=== PATIENT | female | born 1975 | race Caucasian/White ===

== ENCOUNTER 2016-12-24 22:23 | Inpatient (IN) | payer BC ==
[~2016-12-24] VITALS: Ht 165.1 cm; Wt 94.2 kg
[~2016-12-24 22:23] MED LIST: ALBUTEROL0.09 MG/A1 IH; AMBIEN CR 12.12.5 MG PO; AMBIEN5 MG PO; BACTROBAN 22GM22 GM TP; CLARITIN; COMPAZINE 5MG TA5 MG PO; DILAUDID8 M1 PO; EFFEXOR 75M75 MG/TAB PO; LORTAB 10/500 51 TAB PO; LORTAB 5/500 501 TAB PO; METHADONE H10 MG/TAB PO; MS CONTIN 660 MG/TAB PO; MULTIPLE VITAMI1 TAB PO; MVI; NORCO 325 MG-51 TAB PO; NOVA RING; PHENERGAN 25 TA25 MG PO; PHENERGAN W/CO120 ML PO; PYRIDIUM 100MG100 MG PO; SINGULAIR; ULTRAM 50MG TAB50 MG PO; ZANAFLEX 4MG TAB4 MG PO; methodone
[2016-12-24 23:08] LABS: BASO # 0.1 (0.0-0.2); BASO % 0.4 % (0.0-2.0); EOS # 0.3 (0.0-0.7); EOS % 2.6 % (0-4.0); GRAN # 8.4 (1.4-6.5); HEMATOCRIT 41.8 % (37.0-47.0); HEMOGLOBIN 14.3 g/dl (12.5-16.0); LYMPH % 16.9 % (20.0-51.0); MEAN CELL VOLUME 88 fl (80.0-100.0); MEAN CORPUSCULAR HEMOGLOBIN 30 pg (27.0-31.0); MEAN CORPUSCULAR HGB CONC 34 g/dl (33.0-37.0); MONO # 1.1 (0.1-0.6); MONO % 8.8 % (1.7-9.3); PLATELET COUNT 416 K/mm3 (130-400); RED BLOOD COUNT 4.76 M/mm3 (4.10-5.30); REDCELL DISTRIBUTION WIDTH-CV 13.4 % (11.5-14.5); WHITE BLOOD COUNT 11.9 K/mm3 (4.8-10.8)
[2016-12-24 23:23] LABS: ADJUSTED CALCIUM 9.6 mg/dL (8.4-10.2); ALANINE AMINOTRANSFERASE 29 U/L (9-52); ALBUMIN 4.4 gm/dL (3.5-5.0); ALKALINE PHOSPHATASE 149 U/L (50-136); ANION GAP 12 mmol/L (7-16); BILIRUBIN,TOTAL 0.9 mg/dL (0.0-1.0); BLOOD UREA NITROGEN 5 mg/dL (7-17); CALCIUM 9.9 mg/dL (8.4-10.2); CARBON DIOXIDE 29 mmol/L (22-30); CHLORIDE 94 mmol/L (98-107); GLUCOSE 95 mg/dL (74-106); LIPASE 75 U/L (23-300); POTASSIUM 3.9 mmol/L (3.4-5.0); SODIUM 135 mmol/L (137-145); TOTAL PROTEIN 8.4 gm/dL (6.4-8.2)
[2016-12-24 23:33] LABS: TROPONIN-I < 0.012 ng/mL (0.000-0.034)
[2016-12-24 23:56] LABS: C-REACTIVE PROTEIN 11.2 mg/dL (0.0-0.9)
[2016-12-25] VITALS (7 sets, daily range): BP systolic 111–142; BP diastolic 65–94; PULSE 86–109; TEMP 97–98.6
[2016-12-25 00:56] LABS: PH 6 (5-8); URINE APPEARANCE Clear; URINE BACTERIA None Seen /hpf; URINE BILIRUBIN Negative (NEGATIVE); URINE BLOOD Negative (NEGATIVE); URINE COLOR Yellow; URINE GLUCOSE Negative (NEGATIVE); URINE KETONE Negative (NEGATIVE); URINE RBC 0-2 /hpf; URINE UROBILINOGEN Negative (NEGATIVE); URINE WBC 0-2 /hpf
[2016-12-25] MEDS ORDERED: [UNRECOGNIZED DRUG - OTHER] PO (01:59)
[2016-12-25] MEDS ORDERED: FROVA PO (12:31)
[2016-12-26] VITALS (7 sets, daily range): BP systolic 121–155; BP diastolic 58–100; PULSE 62–96; TEMP 97.8–99.3
[2016-12-26 08:57] LABS: BASO % 0.6 % (0.0-2.0); EOS # 0.4 (0.0-0.7); EOS % 5.5 % (0-4.0); GRAN # 4.7 (1.4-6.5); GRAN % 64.7 % (42.2-75.2); HEMATOCRIT 37.1 % (37.0-47.0); HEMOGLOBIN 12.4 g/dl (12.5-16.0); LYMPH # 1.2 (1.2-3.4); LYMPH % 16.9 % (20.0-51.0); MEAN CELL VOLUME 90 fl (80.0-100.0); MEAN CORPUSCULAR HEMOGLOBIN 30 pg (27.0-31.0); MEAN CORPUSCULAR HGB CONC 33 g/dl (33.0-37.0); MONO # 0.9 (0.1-0.6); PLATELET COUNT 385 K/mm3 (130-400); RED BLOOD COUNT 4.12 M/mm3 (4.10-5.30); REDCELL DISTRIBUTION WIDTH-CV 13.6 % (11.5-14.5); WHITE BLOOD COUNT 7.3 K/mm3 (4.8-10.8)
[2016-12-26 09:09] LABS: ALBUMIN 3.7 gm/dL (3.5-5.0); BILIRUBIN,TOTAL 0.4 mg/dL (0.0-1.0); CALCIUM 8.8 mg/dL (8.4-10.2); CREATININE, serum 0.58 mg/dL (0.52-1.25); POTASSIUM 4.2 mmol/L (3.4-5.0); TOTAL PROTEIN 6.9 gm/dL (6.4-8.2)
[2016-12-27] VITALS (9 sets, daily range): BP systolic 117–138; BP diastolic 81–92; PULSE 73–105; TEMP 98–98.8
== END 2016-12-27 20:00 | disposition home or self-care (01) | DRG 417 ==
LOC: COL.ER 22:23 → PEDS 12-25 00:48
PROVIDERS: Emergency Medicine; Internal Medicine; Nurse Practitioner Family; Surgery
PROC: BF101ZZ Fluoroscopy of Bile Ducts using Low Osmolar Contrast (ICD-10-PCS; 2016-12-27)
PROC: 0FT44ZZ Resection of Gallbladder, Percutaneous Endoscopic Approach (ICD-10-PCS; principal; 2016-12-27 09:00)
DX: K80.10 Calculus of gallbladder with chronic cholecystitis without obstruction (principal); K85.10 Biliary acute pancreatitis without necrosis or infection; F17.210 Nicotine dependence, cigarettes, uncomplicated
CPT/HCPCS: 99223-AI; 99232-AI; 99239; A9537; A9585; G0378; J0360; J0744; J1100; J1170; J1885; J2060; J2270; J2405; J2550; J2704; J2710; J3010; J7030; Q9967

== ENCOUNTER 2017-11-01 02:15 | Emergency (ER) | payer BC ==
[~2017-11-01] VITALS: Ht 165.1 cm; Wt 95.5 kg
[~2017-11-01 02:15] MED LIST changes: +FROVA PO; +[UNRECOGNIZED DRUG - OTHER] PO
[2017-11-01 02:18] VITALS: BP 165/91; TEMP 98.5
[2017-11-01 02:53] LABS: BASO % 0.3 % (0.0-2.0); EOS # 0.6 (0.0-0.7); EOS % 5.9 % (0-4.0); GRAN # 7.5 (1.4-6.5); GRAN % 69.5 % (42.2-75.2); HEMATOCRIT 40.4 % (37.0-47.0); HEMOGLOBIN 13.7 g/dl (12.5-16.0); LYMPH % 18.9 % (20.0-51.0); MEAN CELL VOLUME 88 fl (80.0-100.0); MEAN CORPUSCULAR HEMOGLOBIN 30 pg (27.0-31.0); MEAN CORPUSCULAR HGB CONC 34 g/dl (33.0-37.0); MEAN PLATELET VOLUME 9.5 fl (7.4-10.4); MONO # 0.5 (0.1-0.6); MONO % 4.9 % (1.7-9.3); PLATELET COUNT 434 K/mm3 (130-400); RED BLOOD COUNT 4.59 M/mm3 (4.10-5.30); REDCELL DISTRIBUTION WIDTH-CV 14.3 % (11.5-14.5)
[2017-11-01 03:06] LABS: ALBUMIN 4.2 gm/dL (3.5-5.0); BILIRUBIN,TOTAL 0.4 mg/dL (0.0-1.0); CALCIUM 9.1 mg/dL (8.4-10.2); CREATININE, serum 0.89 mg/dL (0.52-1.25); POTASSIUM 3.9 mmol/L (3.4-5.0); TOTAL PROTEIN 7.6 gm/dL (6.4-8.2)
[2017-11-01] MEDS ORDERED: TRIAM OI 0.1 80 TOP (03:58)
[2017-11-01] MEDS ORDERED: NORCO 325 MG-51 TAB PO (03:58)
[2017-11-01 04:28] VITALS: PULSE 106
== END 2017-11-01 04:25 | disposition home or self-care (01) ==
LOC: COL.ER 02:15
PROVIDERS: Emergency Medicine
DX: L30.9 Dermatitis, unspecified (principal); G43.909 Migraine, unspecified, not intractable, without status migrainosus; F17.210 Nicotine dependence, cigarettes, uncomplicated
CPT/HCPCS: J1200; J2930; J3010; J7030

== ENCOUNTER 2018-03-19 07:46 | Emergency (ER) | payer BC ==
[~2018-03-19] VITALS: Ht 165.1 cm; Wt 84.5 kg
[~2018-03-19 07:46] MED LIST changes: +ATIVAN 0.50.5 MG/TAB PO; +TRIAM OI 0.1 80 TOP
[2018-03-19 07:50] VITALS: BP 155/96; TEMP 97.6
[2018-03-19] MEDS ORDERED: PHENERGAN 25 TA25 MG PO (08:07)
[2018-03-19] MEDS ORDERED: DILAUDID8 M1 PO (08:07)
[2018-03-19] MEDS ORDERED: CATAPRES0.2 MG PO (08:08)
[2018-03-19] MEDS ORDERED: AMOXICILLIN 8751 TAB PO (08:10)
[2018-03-19] MEDS ORDERED: NORCO 325 MG-51 TAB PO (08:10)
[2018-03-19 08:29] VITALS: PULSE 91
== END 2018-03-19 08:30 | disposition home or self-care (01) ==
LOC: COL.ER 07:46
DX: K02.9 Dental caries, unspecified (principal); J30.9 Allergic rhinitis, unspecified; G43.909 Migraine, unspecified, not intractable, without status migrainosus; F17.210 Nicotine dependence, cigarettes, uncomplicated

== ENCOUNTER 2019-11-29 12:20 | Emergency (ER) | payer BC ==
[~2019-11-29] VITALS: Ht 165.1 cm; Wt 72.7 kg
[~2019-11-29 12:20] MED LIST changes: +AMOXICILLIN 8751 TAB PO; +CATAPRES0.2 MG PO
[2019-11-29 12:52] VITALS: BP 145/88; TEMP 97.2
[2019-11-29 15:57] VITALS: PULSE 76
== END 2019-11-29 15:55 | disposition home or self-care (01) ==
LOC: COL.ER 12:20
DX: G43.909 Migraine, unspecified, not intractable, without status migrainosus (principal); F17.210 Nicotine dependence, cigarettes, uncomplicated
CPT/HCPCS: J0595; J2550

== ENCOUNTER 2021-03-05 06:47 | Emergency (ER) | payer BC ==
[~2021-03-05] VITALS: Ht 165.1 cm; Wt 81.8 kg
[2021-03-05 07:08] VITALS: TEMP 97.7
[2021-03-05] MEDS ORDERED: TOPROL XL 50MG50 MG PO (07:31)
[2021-03-05] MEDS ORDERED: FLEXERIL 1010 MG/TAB PO (07:31)
[2021-03-05] MEDS ORDERED: FROVA PO (07:32)
[2021-03-05 08:16] LABS: BASO % 0.4 % (0.0-2.0); EOS # 0.4 (0.0-0.7); EOS % 3.7 % (0-4.0); GRAN % 73.3 % (42.2-75.2); HEMATOCRIT 35.2 % (37.0-47.0); LYMPH # 1.3 (1.2-3.4); LYMPH % 13.7 % (20.0-51.0); MEAN CELL VOLUME 87 fl (80.0-100.0); MEAN CORPUSCULAR HEMOGLOBIN 30 pg (27.0-31.0); MEAN CORPUSCULAR HGB CONC 34 g/dl (33.0-37.0); MEAN PLATELET VOLUME 9.5 fl (7.4-10.4); MONO # 0.8 (0.1-0.6); MONO % 8.6 % (1.7-9.3); PLATELET COUNT 371 K/mm3 (130-400); RED BLOOD COUNT 4.03 M/mm3 (4.10-5.30); REDCELL DISTRIBUTION WIDTH-CV 13.9 % (11.5-14.5)
[2021-03-05 08:24] LABS: INR 1.2 (0.8-3.0); PROTHROMBIN TIME 12.8 SECONDS (9.7-12.8)
[2021-03-05 08:28] LABS: ALBUMIN 3.6 gm/dL (3.5-5.0); BILIRUBIN,TOTAL 0.1 mg/dL (0.0-1.0); C-REACTIVE PROTEIN 1.6 mg/dL (0.0-0.9); CALCIUM 8.2 mg/dL (8.4-10.2); CREATININE, serum 0.6 (0.52-1.25); POTASSIUM 3.7 mmol/L (3.4-5.0); TOTAL PROTEIN 6.8 gm/dL (6.4-8.2)
[2021-03-05 10:15] LABS: COLLECTION METHOD CLEAN CATCH
[2021-03-05 10:20] LABS: MUCOUS Present /lpf; PH 6 (5-8); SQUAMOUS EPITHELIAL 0-2 /hpf; URINE APPEARANCE Hazy; URINE BACTERIA Rare /hpf; URINE BILIRUBIN Negative (NEGATIVE); URINE BLOOD Negative (NEGATIVE); URINE COLOR Yellow; URINE GLUCOSE Negative (NEGATIVE); URINE KETONE Negative (NEGATIVE); URINE LEUKOCYTE ESTERASE Negative (NEGATIVE); URINE NITRATE Negative (NEGATIVE); URINE PROTEIN(semi-quant) Negative (NEGATIVE); URINE RBC 0-2 /hpf; URINE UROBILINOGEN Negative (NEGATIVE)
[2021-03-05 10:54] VITALS: BP 127/88; PULSE 64
== END 2021-03-05 11:00 | disposition home or self-care (01) ==
LOC: COL.ER 06:47
PROVIDERS: Emergency Medicine
DX: R10.32 Left lower quadrant pain (principal); G89.29 Other chronic pain; F17.210 Nicotine dependence, cigarettes, uncomplicated; Z90.49 Acquired absence of other specified parts of digestive tract; Z87.448 Personal history of other diseases of urinary system; Z32.02 Encounter for pregnancy test, result negative; Z88.1 Allergy status to other antibiotic agents; Z88.2 Allergy status to sulfonamides; Z88.6 Allergy status to analgesic agent
CPT/HCPCS: J7030

== ENCOUNTER → 2021-04-04 | Outpatient (CLI) | payer BC ==
[~2021-04-04] MED LIST changes: +FLEXERIL 1010 MG/TAB PO; +TOPROL XL 50MG50 MG PO
== END ==
LOC: COL.RAD 14:38
DX: N26.1 Atrophy of kidney (terminal) (principal); I88.0 Nonspecific mesenteric lymphadenitis; Z90.49 Acquired absence of other specified parts of digestive tract

== ENCOUNTER 2021-04-05 13:55 | Emergency (ER) | payer BC ==
[~2021-04-05] VITALS: Ht 165.1 cm; Wt 79.5 kg
[2021-04-05 14:03] VITALS: TEMP 97.7
[2021-04-05 16:27] VITALS: BP 148/99; PULSE 74
== END 2021-04-05 16:26 | disposition home or self-care (01) ==
LOC: COL.ER 13:55
DX: R51.9 Headache, unspecified (principal); R11.0 Nausea; J34.89 Other specified disorders of nose and nasal sinuses; F17.210 Nicotine dependence, cigarettes, uncomplicated
CPT/HCPCS: J1200; J2405

== ENCOUNTER 2021-10-14 19:20 | Emergency (ER) | payer BC ==
[~2021-10-14] VITALS: Ht 165.1 cm; Wt 72.7 kg
[2021-10-14 19:30] VITALS: TEMP 98
[2021-10-14 22:06] LABS: BASO # 0.1 K/mm3 (0.0-0.2); BASO % 0.5 % (0.0-2.0); EOS # 0.3 K/mm3 (0.0-0.7); EOS % 3.1 % (0.0-4.0); GRAN % 57.9 % (42.2-75.2); HEMOGLOBIN 11.4 g/dl (12.5-16.0); LYMPH % 28.8 % (20.0-51.0); MEAN CELL VOLUME 90 fl (80.0-100.0); MEAN CORPUSCULAR HEMOGLOBIN 31 pg (27-31); MEAN CORPUSCULAR HGB CONC 34 g/dl (33.0-37.0); MEAN PLATELET VOLUME 9.3 fl (7.4-10.4); MONO % 9.3 % (1.7-9.3); PLATELET COUNT 410 K/mm3 (130-400); RED BLOOD COUNT 3.74 M/mm3 (4.10-5.30); REDCELL DISTRIBUTION WIDTH-CV 15.9 % (11.5-14.5)
[2021-10-14 22:14] LABS: HEMATOCRIT 33.8 % (37.0-47.0)
[2021-10-14 22:25] LABS: ALBUMIN 3.1 gm/dL (3.5-5.0); BILIRUBIN,TOTAL 0.2 mg/dL (0.2-1.2); C-REACTIVE PROTEIN 0.29 mg/dL (0.00-0.50); CALCIUM 8.2 mg/dL (8.4-10.2); CREATININE, serum 0.78 mg/dL (0.57-1.11); POTASSIUM 4.4 mmol/L (3.5-4.5); TOTAL PROTEIN 5.8 gm/dL (6.2-8.1)
[2021-10-14 23:17] LABS: COLLECTION METHOD CLEAN CATCH
[2021-10-14 23:35] LABS: MUCOUS Present (NOT PRESENT); PH 6 (5-8); SQUAMOUS EPITHELIAL 0-2 /hpf (0-10); URINE APPEARANCE Clear (CLEAR/HAZY); URINE BACTERIA Moderate (NONE SEEN); URINE BILIRUBIN Negative (NEGATIVE); URINE BLOOD Negative (NEGATIVE); URINE COLOR Straw (YELLOW); URINE GLUCOSE Negative (NEGATIVE); URINE KETONE Negative (NEGATIVE); URINE LEUKOCYTE ESTERASE Negative (NEGATIVE); URINE NITRATE Negative (NEGATIVE); URINE PROTEIN(semi-quant) Negative (NEGATIVE); URINE RBC 0-2 /hpf (0-2); URINE UROBILINOGEN Negative (NEGATIVE)
[2021-10-15 01:50] VITALS: BP 146/78; PULSE 74
== END 2021-10-15 01:50 | disposition home or self-care (01) ==
LOC: COL.ER 19:20
PROVIDERS: Physician Assistant
DX: N83.202 Unspecified ovarian cyst, left side (principal); R19.7 Diarrhea, unspecified; G43.909 Migraine, unspecified, not intractable, without status migrainosus; Z88.6 Allergy status to analgesic agent; Z79.899 Other long term (current) drug therapy
CPT/HCPCS: J2270; J2405; J7030; Q9967

== ENCOUNTER 2021-10-24 08:42 | Emergency (ER) | payer BC ==
[~2021-10-24] VITALS: Ht 165.1 cm; Wt 66.8 kg
[2021-10-24 09:28] LABS: BASO % 0.6 % (0.0-2.0); EOS # 0.2 K/mm3 (0.0-0.7); EOS % 2.8 % (0.0-4.0); GRAN # 4.4 K/mm3 (1.4-6.5); HEMOGLOBIN 12.5 g/dl (12.5-16.0); LYMPH # 1.6 K/mm3 (1.2-3.4); LYMPH % 23.1 % (20.0-51.0); MEAN CELL VOLUME 91 fl (80.0-100.0); MEAN CORPUSCULAR HEMOGLOBIN 31 pg (27-31); MEAN CORPUSCULAR HGB CONC 34 g/dl (33.0-37.0); MONO # 0.6 K/mm3 (0.1-0.6); MONO % 8.4 % (1.7-9.3); PLATELET COUNT 511 K/mm3 (130-400); RED BLOOD COUNT 4.02 M/mm3 (4.10-5.30); REDCELL DISTRIBUTION WIDTH-CV 15.9 % (11.5-14.5)
[2021-10-24 09:35] LABS: HEMATOCRIT 36.6 % (37.0-47.0)
[2021-10-24 09:49] LABS: ALBUMIN 3.7 gm/dL (3.5-5.0); BILIRUBIN,TOTAL 0.2 mg/dL (0.2-1.2); C-REACTIVE PROTEIN 0.14 mg/dL (0.00-0.50); CALCIUM 8.4 mg/dL (8.4-10.2); CREATININE, serum 0.77 mg/dL (0.57-1.11); POTASSIUM 3.4 mmol/L (3.5-4.5)
[2021-10-24 11:50] LABS: COLLECTION METHOD CLEAN CATCH
[2021-10-24 11:56] LABS: URINE APPEARANCE Clear (CLEAR/HAZY); URINE COLOR Yellow (YELLOW)
[2021-10-24 11:57] LABS: PH 5 (5-8); URINE BILIRUBIN Negative (NEGATIVE); URINE BLOOD Negative (NEGATIVE); URINE GLUCOSE Negative (NEGATIVE); URINE KETONE Negative (NEGATIVE); URINE LEUKOCYTE ESTERASE Negative (NEGATIVE); URINE NITRATE Negative (NEGATIVE); URINE PROTEIN(semi-quant) Negative (NEGATIVE); URINE UROBILINOGEN Negative (NEGATIVE)
[2021-10-24 11:59] LABS: MUCOUS Present (NOT PRESENT); SQUAMOUS EPITHELIAL 0-2 /hpf (0-10); URINE BACTERIA Rare /hpf (NONE SEEN); URINE RBC 0-2 /hpf (0-2)
[2021-10-24] MEDS ORDERED: NORCO 325 MG-51 TAB PO (13:01)
[2021-10-24] MEDS ORDERED: ZOFRAN ODT4 MG PO (13:01)
[2021-10-24 13:14] VITALS: BP 149/110; PULSE 91; TEMP 98.9
== END 2021-10-24 13:40 | disposition home or self-care (01) ==
LOC: COL.ER 08:42
PROVIDERS: Family Medicine
DX: R10.32 Left lower quadrant pain (principal); R11.0 Nausea; G43.909 Migraine, unspecified, not intractable, without status migrainosus; F17.210 Nicotine dependence, cigarettes, uncomplicated; Z79.899 Other long term (current) drug therapy
CPT/HCPCS: J2270; J2405; J7120

== ENCOUNTER 2021-10-26 17:56 | Emergency (ER) | payer BC ==
[~2021-10-26] VITALS: Ht 165.1 cm; Wt 64.5 kg
[~2021-10-26 17:56] MED LIST changes: +ZOFRAN ODT4 MG PO
[2021-10-26 18:06] VITALS: TEMP 99.7
[2021-10-26 18:35] LABS: BASO # 0.1 K/mm3 (0.0-0.2); BASO % 1.1 % (0.0-2.0); EOS # 0.3 K/mm3 (0.0-0.7); EOS % 5.5 % (0.0-4.0); GRAN % 52.3 % (42.2-75.2); HEMOGLOBIN 12.7 g/dl (12.5-16.0); LYMPH # 1.8 K/mm3 (1.2-3.4); LYMPH % 32.4 % (20.0-51.0); MEAN CELL VOLUME 91 fl (80.0-100.0); MEAN CORPUSCULAR HEMOGLOBIN 31 pg (27-31); MEAN CORPUSCULAR HGB CONC 34 g/dl (33.0-37.0); MONO # 0.5 K/mm3 (0.1-0.6); MONO % 8.5 % (1.7-9.3); PLATELET COUNT 496 K/mm3 (130-400); RED BLOOD COUNT 4.06 M/mm3 (4.10-5.30); REDCELL DISTRIBUTION WIDTH-CV 15.8 % (11.5-14.5)
[2021-10-26 18:51] LABS: ALBUMIN 4.2 gm/dL (3.5-5.0); BILIRUBIN,TOTAL 0.3 mg/dL (0.2-1.2); C-REACTIVE PROTEIN 0.39 mg/dL (0.00-0.50); CALCIUM 9.6 mg/dL (8.4-10.2); CREATININE, serum 0.83 mg/dL (0.57-1.11); POTASSIUM 3.7 mmol/L (3.5-4.5); TOTAL PROTEIN 7.8 gm/dL (6.2-8.1)
[2021-10-26 19:54] LABS: COLLECTION METHOD CLEAN CATCH
[2021-10-26 19:59] LABS: PH 5 (5-8); SQUAMOUS EPITHELIAL 0-2 /hpf (0-10); URINE APPEARANCE Clear (CLEAR/HAZY); URINE BACTERIA Rare /hpf (NONE SEEN); URINE BILIRUBIN Negative (NEGATIVE); URINE BLOOD Negative (NEGATIVE); URINE COLOR Straw (YELLOW); URINE GLUCOSE Negative (NEGATIVE); URINE KETONE Negative (NEGATIVE); URINE LEUKOCYTE ESTERASE Negative (NEGATIVE); URINE NITRATE Negative (NEGATIVE); URINE PROTEIN(semi-quant) Negative (NEGATIVE); URINE RBC None Seen /hpf (0-2); URINE UROBILINOGEN Negative (NEGATIVE)
[2021-10-26 20:16] LABS: TRICYCLIC ANTIDEPRESS URINE NEGATIVE
[2021-10-26] MEDS ORDERED: PROTONIX 40MG T40 MG PO (20:27)
[2021-10-26 20:37] VITALS: BP 164/89; PULSE 76
== END 2021-10-26 20:37 | disposition home or self-care (01) ==
LOC: COL.ER 17:56
PROVIDERS: Physician Assistant
DX: R10.12 Left upper quadrant pain (principal); R11.2 Nausea with vomiting, unspecified; R19.7 Diarrhea, unspecified
CPT/HCPCS: J0780; J2270; J7030

== ENCOUNTER 2021-11-10 18:51 | Emergency (ER) | payer BC ==
[~2021-11-10 18:51] MED LIST changes: +PROTONIX 40MG T40 MG PO
[2021-11-10 19:35] VITALS: TEMP 99.2
[2021-11-10 19:56] LABS: BASO # 0.1 K/mm3 (0.0-0.2); BASO % 0.5 % (0.0-2.0); EOS # 0.2 K/mm3 (0.0-0.7); EOS % 1.6 % (0.0-4.0); GRAN # 7.6 K/mm3 (1.4-6.5); GRAN % 69.4 % (42.2-75.2); HEMATOCRIT 37.2 % (37.0-47.0); LYMPH # 1.9 K/mm3 (1.2-3.4); LYMPH % 17.5 % (20.0-51.0); MEAN CELL VOLUME 90 fl (80.0-100.0); MEAN CORPUSCULAR HEMOGLOBIN 32 pg (27-31); MEAN CORPUSCULAR HGB CONC 35 g/dl (33.0-37.0); MEAN PLATELET VOLUME 9.1 fl (7.4-10.4); MONO # 1.2 K/mm3 (0.1-0.6); MONO % 10.6 % (1.7-9.3); PLATELET COUNT 383 K/mm3 (130-400); RED BLOOD COUNT 4.12 M/mm3 (4.10-5.30); REDCELL DISTRIBUTION WIDTH-CV 15.9 % (11.5-14.5)
[2021-11-10 20:22] LABS: ALBUMIN 3.9 gm/dL (3.5-5.0); BILIRUBIN,TOTAL 0.2 mg/dL (0.2-1.2); C-REACTIVE PROTEIN 2.65 mg/dL (0.00-0.50); CALCIUM 8.5 mg/dL (8.4-10.2); CREATININE, serum 0.74 mg/dL (0.57-1.11); POTASSIUM 4.5 mmol/L (3.5-4.5)
[2021-11-10 20:46] LABS: COLLECTION METHOD CLEAN CATCH
[2021-11-10 20:55] LABS: PH 6 (5-8); URINE APPEARANCE Hazy (CLEAR/HAZY); URINE BACTERIA Moderate /hpf (NONE SEEN); URINE BILIRUBIN Negative (NEGATIVE); URINE BLOOD Negative (NEGATIVE); URINE COLOR Yellow (YELLOW); URINE GLUCOSE Negative (NEGATIVE); URINE KETONE Negative (NEGATIVE); URINE LEUKOCYTE ESTERASE Negative (NEGATIVE); URINE NITRATE Negative (NEGATIVE); URINE PROTEIN(semi-quant) Negative (NEGATIVE); URINE RBC 0-2 /hpf (0-2); URINE UROBILINOGEN Negative (NEGATIVE)
[2021-11-10 21:05] LABS: TRICYCLIC ANTIDEPRESS URINE NEGATIVE
[2021-11-10 21:42] VITALS: BP 139/107; PULSE 88
== END 2021-11-10 21:42 | disposition home or self-care (01) ==
LOC: COL.ER 18:51
PROVIDERS: Family Medicine
DX: R10.12 Left upper quadrant pain (principal); D72.829 Elevated white blood cell count, unspecified; Z90.49 Acquired absence of other specified parts of digestive tract
CPT/HCPCS: J2270; J2405; J7120

== ENCOUNTER 2022-05-01 21:17 | Emergency (ER) | payer BC ==
[2022-05-01 21:20] VITALS: TEMP 99.1
[2022-05-01 21:35] VITALS: BP 135/83
[2022-05-01 21:38] LABS: BASO # 0.1 K/mm3 (0.0-0.2); EOS # 0.3 K/mm3 (0.0-0.7); EOS % 5.5 % (0.0-4.0); GRAN # 2.7 K/mm3 (1.4-6.5); GRAN % 54.7 % (42.2-75.2); HEMOGLOBIN 12.4 g/dl (12.5-16.0); LYMPH # 1.4 K/mm3 (1.2-3.4); LYMPH % 28.1 % (20.0-51.0); MEAN CELL VOLUME 87 fl (80.0-100.0); MEAN CORPUSCULAR HEMOGLOBIN 30 pg (27-31); MEAN CORPUSCULAR HGB CONC 34 g/dl (33.0-37.0); MEAN PLATELET VOLUME 9.1 fl (7.4-10.4); MONO # 0.5 K/mm3 (0.1-0.6); MONO % 10.5 % (1.7-9.3); PLATELET COUNT 404 K/mm3 (130-400); RED BLOOD COUNT 4.21 M/mm3 (4.10-5.30); REDCELL DISTRIBUTION WIDTH-CV 15.2 % (11.5-14.5)
[2022-05-01 21:46] LABS: HEMATOCRIT 36.4 % (37.0-47.0)
[2022-05-01 21:54] LABS: ALANINE AMINOTRANSFERASE 13 U/L (0-55); ALBUMIN 3.8 gm/dL (3.5-5.0); ALKALINE PHOSPHATASE 92 U/L (40-150); ANION GAP 15 mmol/L (7-16); AST,SGOT 18 U/L (5-34); BILIRUBIN,TOTAL 0.2 mg/dL (0.2-1.2); BLOOD UREA NITROGEN 8 mg/dL (7-19); CALCIUM 9.3 mg/dL (8.4-10.2); CARBON DIOXIDE 25 mmol/L (22-29); CHLORIDE 101 mmol/L (98-107); CREATININE, serum 0.89 mg/dL (0.57-1.11); GLUCOSE 88 mg/dL (70-99); POTASSIUM 4.6 mmol/L (3.5-4.5); SODIUM 141 mmol/L (136-145); TOTAL PROTEIN 7.4 gm/dL (6.2-8.1)
[2022-05-01 21:55] LABS: ALCOHOL(ethanol),MEDICAL < 10 mg/dL (0-10)
[2022-05-01 22:20] VITALS: PULSE 100
== END 2022-05-01 22:19 ==
LOC: COL.ER 21:17
PROVIDERS: Personal Emergency Response Attendant
DX: T40.2X1A Poisoning by other opioids, accidental (unintentional), initial encounter (principal); Z88.5 Allergy status to narcotic agent
CPT/HCPCS: J2310

== ENCOUNTER 2022-05-04 08:08 | Emergency (ER) | payer BC ==
[~2022-05-04] VITALS: Ht 165.1 cm; Wt 59.1 kg
[2022-05-04 08:37] VITALS: TEMP 98.2
[2022-05-04 09:01] LABS: BASO % 0.9 % (0.0-2.0); EOS # 0.1 K/mm3 (0.0-0.7); EOS % 2.4 % (0.0-4.0); GRAN # 2.9 K/mm3 (1.4-6.5); GRAN % 64.4 % (42.2-75.2); HEMOGLOBIN 12.7 g/dl (12.5-16.0); LYMPH % 21.9 % (20.0-51.0); MEAN CELL VOLUME 85 fl (80.0-100.0); MEAN CORPUSCULAR HEMOGLOBIN 29 pg (27-31); MEAN CORPUSCULAR HGB CONC 35 g/dl (33.0-37.0); MEAN PLATELET VOLUME 9.7 fl (7.4-10.4); MONO # 0.5 K/mm3 (0.1-0.6); PLATELET COUNT 428 K/mm3 (130-400); RED BLOOD COUNT 4.33 M/mm3 (4.10-5.30)
[2022-05-04 09:12] LABS: ALBUMIN 3.8 gm/dL (3.5-5.0); BILIRUBIN,TOTAL 0.2 mg/dL (0.2-1.2); C-REACTIVE PROTEIN 0.27 mg/dL (0.00-0.50); CREATININE, serum 0.79 mg/dL (0.57-1.11); POTASSIUM 3.6 mmol/L (3.5-4.5); TOTAL PROTEIN 7.1 gm/dL (6.2-8.1)
[2022-05-04 09:34] LABS: HEMATOCRIT 36.8 % (37.0-47.0)
[2022-05-04 10:36] LABS: COLLECTION METHOD CLEAN CATCH
[2022-05-04 11:28] LABS: SQUAMOUS EPITHELIAL 0-2 /hpf (0-10); URINE BACTERIA Rare /hpf (NONE SEEN); URINE RBC 0-2 /hpf (0-2)
[2022-05-04 11:40] LABS: URINE APPEARANCE Clear (CLEAR/HAZY); URINE COLOR Yellow (YELLOW)
[2022-05-04 11:41] LABS: PH 6 (5-8); URINE BILIRUBIN Negative (NEGATIVE); URINE BLOOD Negative (NEGATIVE); URINE GLUCOSE Negative (NEGATIVE); URINE KETONE Negative (NEGATIVE); URINE LEUKOCYTE ESTERASE Negative (NEGATIVE); URINE NITRATE Negative (NEGATIVE); URINE PROTEIN(semi-quant) Negative (NEGATIVE); URINE UROBILINOGEN Negative (NEGATIVE)
[2022-05-04 11:45] VITALS: BP 159/106; PULSE 77
== END 2022-05-04 11:45 | disposition home or self-care (01) ==
LOC: COL.ER 08:08
PROVIDERS: Family Medicine
DX: R10.32 Left lower quadrant pain (principal); G89.29 Other chronic pain; F17.210 Nicotine dependence, cigarettes, uncomplicated; Z90.49 Acquired absence of other specified parts of digestive tract
CPT/HCPCS: J2270; J2405; J7120; Q9967

== ENCOUNTER 2022-05-30 23:24 | Emergency (ER) | payer BC ==
[~2022-05-30] VITALS: Ht 165.1 cm; Wt 59.1 kg
[2022-05-30 23:28] VITALS: TEMP 97.2
[2022-05-31 00:19] LABS: COLLECTION METHOD CLEAN CATCH
[2022-05-31 00:22] LABS: BASO # 0.1 K/mm3 (0.0-0.2); BASO % 0.9 % (0.0-2.0); EOS # 0.3 K/mm3 (0.0-0.7); EOS % 3.7 % (0.0-4.0); GRAN # 4.6 K/mm3 (1.4-6.5); GRAN % 57.8 % (42.2-75.2); LYMPH # 2.2 K/mm3 (1.2-3.4); LYMPH % 27.1 % (20.0-51.0); MEAN CELL VOLUME 87 fl (80.0-100.0); MEAN CORPUSCULAR HEMOGLOBIN 30 pg (27-31); MEAN CORPUSCULAR HGB CONC 35 g/dl (33.0-37.0); MEAN PLATELET VOLUME 9.5 fl (7.4-10.4); MONO # 0.8 K/mm3 (0.1-0.6); MONO % 10.2 % (1.7-9.3); PLATELET COUNT 353 K/mm3 (130-400); RED BLOOD COUNT 3.99 M/mm3 (4.10-5.30); REDCELL DISTRIBUTION WIDTH-CV 15.2 % (11.5-14.5)
[2022-05-31 00:25] LABS: HEMATOCRIT 34.7 % (37.0-47.0)
[2022-05-31 00:29] LABS: PH 6 (5-8); SQUAMOUS EPITHELIAL 0-2 /hpf (0-10); URINE APPEARANCE Clear (CLEAR/HAZY); URINE BACTERIA Many /hpf (NONE SEEN); URINE BLOOD Negative (NEGATIVE); URINE COLOR Straw (YELLOW); URINE GLUCOSE Negative (NEGATIVE); URINE KETONE Negative (NEGATIVE); URINE NITRATE Negative (NEGATIVE); URINE PROTEIN(semi-quant) Negative (NEGATIVE); URINE RBC 0-2 /hpf (0-2); URINE UROBILINOGEN Negative (NEGATIVE)
[2022-05-31 00:36] LABS: TRICYCLIC ANTIDEPRESS URINE NEGATIVE
[2022-05-31 00:40] LABS: BILIRUBIN,TOTAL 0.2 mg/dL (0.2-1.2); CREATININE, serum 1.15 mg/dL (0.57-1.11); POTASSIUM 3.4 mmol/L (3.5-4.5); TOTAL PROTEIN 7.1 gm/dL (6.2-8.1)
[2022-05-31] MEDS ORDERED: MACROBID 1100 MG/CAP PO (01:19)
[2022-05-31 01:34] VITALS: BP 137/98; PULSE 89
== END 2022-05-31 01:34 | disposition home or self-care (01) ==
LOC: COL.ER 23:24
PROVIDERS: Emergency Medicine Emergency Medical Services
DX: N39.0 Urinary tract infection, site not specified (principal); G89.29 Other chronic pain; Z88.1 Allergy status to other antibiotic agents
CPT/HCPCS: J1885; J7030

== ENCOUNTER → 2022-06-06 | Outpatient (CLI) | payer BC ==
[~2022-06-06] MED LIST changes: +MACROBID 1100 MG/CAP PO
== END ==
LOC: COL.RAD 07:26
DX: R10.9 Unspecified abdominal pain (principal)
CPT/HCPCS: A9541

== ENCOUNTER 2022-06-14 19:06 | Emergency (ER) | payer BC ==
[~2022-06-14] VITALS: Ht 165.1 cm; Wt 61.4 kg
[2022-06-14 19:17] VITALS: TEMP 98.4
[2022-06-14 19:51] LABS: COLLECTION METHOD CLEAN CATCH
[2022-06-14 19:56] LABS: BASO # 0.1 K/mm3 (0.0-0.2); BASO % 1.2 % (0.0-2.0); EOS # 0.1 K/mm3 (0.0-0.7); EOS % 1.7 % (0.0-4.0); GRAN # 2.4 K/mm3 (1.4-6.5); GRAN % 56.9 % (42.2-75.2); HEMOGLOBIN 10.7 g/dl (12.5-16.0); LYMPH # 1.3 K/mm3 (1.2-3.4); LYMPH % 30.6 % (20.0-51.0); MEAN CELL VOLUME 88 fl (80.0-100.0); MEAN CORPUSCULAR HEMOGLOBIN 31 pg (27-31); MEAN CORPUSCULAR HGB CONC 35 g/dl (33.0-37.0); MEAN PLATELET VOLUME 10.5 fl (7.4-10.4); MONO # 0.4 K/mm3 (0.1-0.6); MONO % 9.4 % (1.7-9.3); PLATELET COUNT 320 K/mm3 (130-400); RED BLOOD COUNT 3.51 M/mm3 (4.10-5.30); REDCELL DISTRIBUTION WIDTH-CV 14.9 % (11.5-14.5)
[2022-06-14 20:04] LABS: HEMATOCRIT 30.9 % (37.0-47.0)
[2022-06-14 20:09] LABS: SQUAMOUS EPITHELIAL 0-2 /hpf (0-10); URINE BACTERIA Occasional /hpf (NONE SEEN); URINE RBC 0-2 /hpf (0-2)
[2022-06-14 20:10] LABS: ALBUMIN 3.5 gm/dL (3.5-5.0); BILIRUBIN,TOTAL 0.2 mg/dL (0.2-1.2); CALCIUM 8.7 mg/dL (8.4-10.2); CREATININE, serum 0.73 mg/dL (0.57-1.11); PH 6.5 (5.0-8.5); POTASSIUM 3.7 mmol/L (3.5-4.5); TOTAL PROTEIN 6.5 gm/dL (6.2-8.1); URINE APPEARANCE Clear (CLEAR/HAZY); URINE BLOOD TRACE-INTACT (NEGATIVE); URINE COLOR Straw (YELLOW); URINE GLUCOSE Negative (NEGATIVE); URINE KETONE Negative (NEGATIVE); URINE NITRATE Negative (NEGATIVE); URINE PROTEIN(semi-quant) Negative (NEGATIVE); URINE UROBILINOGEN 0.2 E.U/dL (0.2-1.0)
[2022-06-14 21:07] VITALS: BP 164/91; PULSE 84
== END 2022-06-14 21:06 | disposition home or self-care (01) ==
LOC: COL.ER 19:06
PROVIDERS: Personal Emergency Response Attendant
DX: R10.32 Left lower quadrant pain (principal); F17.210 Nicotine dependence, cigarettes, uncomplicated
CPT/HCPCS: J2270; J2405; J7030

== ENCOUNTER 2022-10-29 15:49 | Emergency (ER) | payer BC ==
[~2022-10-29] VITALS: Ht 165.1 cm; Wt 63.6 kg
[2022-10-29 15:54] VITALS: BP 150/97; TEMP 97.6
[2022-10-29] MEDS ORDERED: MEDROL 4MG DOSPA4 MG PO ×3 (16:22→16:24)
[2022-10-29 16:33] VITALS: PULSE 92
== END 2022-10-29 16:33 | disposition home or self-care (01) ==
LOC: COL.ER 15:49
DX: L30.9 Dermatitis, unspecified (principal)

== ENCOUNTER → 2023-12-04 | Emergency (ER) | payer BC ==
[~2023-12-04] VITALS: Ht 165.1 cm; Wt 68.2 kg
[~2023-12-04] MED LIST changes: +MEDROL 4MG DOSPA4 MG PO; +NS 1,000 ML IV ONE; +diphenhydrAMINE 50 MG/ML 1 ML VIAL IV ONE; +droPERidol 2.5 MG/ML 2 ML VIAL IV ONE
[2023-12-04 20:56] VITALS: BP 164/110; PULSE 83; TEMP 98.1
== END ==
LOC: COL.ER 20:43
DX: G43.909 Migraine, unspecified, not intractable, without status migrainosus (principal); F17.200 Nicotine dependence, unspecified, uncomplicated
CPT/HCPCS: J0780; J1200; J1790; J7030